=== PATIENT | male | born 1960 | race Caucasian/White ===

== ENCOUNTER 2017-06-07 12:45 | Emergency (ER) | payer OTHER ==
[~2017-06-07] VITALS: Ht 190.5 cm; Wt 105.2 kg
[~2017-06-07 12:45] MED LIST: ALTACE5 MG PO; ASPIRIN CHEW81 MG PO; BENICAR HCT 201 EACH PO; RAMIPRIL5 MG PO; TOPROL XL50 MG PO; TREXALL7.5 MG
[2017-06-07] MEDS ORDERED: SODIUM CHLORIDE 0.9% 1000ML 1,000 ML IV ONE (13:30)
[2017-06-07 14:44] LABS: BASOPHILS # (AUTO) 0.1 (0.0-0.1); BASOPHILS % 0.7 % (0.0-1.0); EOSINOPHILS # (AUTO) 0.1 (0.0-0.4); EOSINOPHILS % 1.4 % (0.0-6.0); HEMATOCRIT 38.5 % (38.2-49.6); INR 0.87; LYMPHOCYTES # (AUTO) 2.3 (1.0-3.2); LYMPHOCYTES % 26.2 % (18.0-39.1); MEAN CORPUSCULAR HEMOGLOBIN 31.4 pg (28-32); MEAN CORPUSCULAR HGB CONC 33.8 g/dL (31-35); MONOCYTES # (AUTO) 0.9 (0.2-0.8); MONOCYTES % 10.6 % (4.4-11.3); NEUTROPHILS # (AUTO) 5.3 (2.1-6.9); NEUTROPHILS % 60.5 % (38.7-80.0); PARTIAL THROMBOPLASTIN TIME 25.8 seconds (23.8-35.5); PLATELET COUNT 215 x10e3/uL (140-360); PROTHROMBIN TIME 12.3 seconds (11.9-14.5); RED BLOOD COUNT 4.14 x10e6/uL (4.3-5.7); RED CELL DISTRIBUTION WIDTH 13.5 % (11.7-14.4)
[2017-06-07 14:52] LABS: ALBUMIN 3.7 g/dL (3.5-5.0); ALBUMIN/GLOBULIN RATIO 1.3 (0.8-2.0); ANION GAP 10.2 mmol/L (8-16); CALCIUM 9.3 mg/dL (8.4-10.2); CREATININE, SERUM 1.27 mg/dL (0.72-1.25); POTASSIUM 4.2 mmol/L (3.5-5.1)
[2017-06-07 15:20] LABS: BILIRUBIN,URINE NEGATIVE (NEGATIVE); CLARITY,URINE OTHER (CLEAR); COLOR,URINE RED (YELLOW); KETONES,URINE NEGATIVE (NEGATIVE); LEUKOCYTE ESTERASE ,URINE TRACE (NEGATIVE); NITRITE,URINE NEGATIVE (NEGATIVE); PROTEIN,URINE DIPSTICK 3+ (NEGATIVE); URINE UROBILINOGEN 0.2 mg/dL (0.2 - 1)
[2017-06-07 15:26] LABS: RBC,URINE >50 /HPF (0-5)
== END 2017-06-07 15:57 | disposition home or self-care (01) ==
LOC: ER 12:45
DX: R31.9 Hematuria, unspecified (principal); R30.0 Dysuria; R42 Dizziness and giddiness; I10 Essential (primary) hypertension; Z87.438 Personal history of other diseases of male genital organs
CPT/HCPCS: 36415; 80053; 81001; 85025; 85610; 85730; 87086; 99283; J7030